=== PATIENT | female | born 1980 | race Caucasian/White ===

== ENCOUNTER 2018-02-25 20:11 | Emergency (ER) | payer OTHER ==
[~2018-02-25] VITALS: Ht 180.3 cm; Wt 68.0 kg
[2018-02-25 20:22] VITALS: BP 113/72
[2018-02-25] MEDS ORDERED: TDAP [DIPH/PERTUSSIS/TET] 0.5 ML VIAL IM ONE (22:00)
--- NOTE | 2018-02-25 22:33 | NUR ---
PT REFUSED TETANUS SHOT, PT STS SHE HAD TETANUS SHOT 2 YRS AGO, CAMILLA STERLING AWARE.
== END 2018-02-25 22:34 | disposition home or self-care (01) ==
LOC: ER 20:18
DX: S91.205A Unspecified open wound of left lesser toe(s) with damage to nail, initial encounter (principal); W22.8XXA Striking against or struck by other objects, initial encounter; Y93.89 Activity, other specified; Y92.89 Other specified places as the place of occurrence of the external cause; Y99.8 Other external cause status
CPT/HCPCS: 73660-TC; A4606; Z7610